=== PATIENT | female | born 1965 | race Caucasian/White ===

== ENCOUNTER 2025-06-09 07:01 | Day surgery (SDC) | payer OTHER ==
[~2025-06-09 07:01] MED LIST: Midazolam 1 MG/ML 2 ML SDV ONE; Propofol 200 MG/20 ML SDV ONE; fentaNYL 50 MCG/ML SDV ONE
[2025-06-09] MEDS: Lactated Ringers 1,000 ML IV SCH (07:50)
== END 2025-06-09 09:45 | disposition home or self-care (01) ==
LOC: JP.SDS 07:01
PROVIDERS: ATTEND Surgery
DX: Z12.11 Encounter for screening for malignant neoplasm of colon (principal); K57.30 Diverticulosis of large intestine without perforation or abscess without bleeding; I10 Essential (primary) hypertension
CPT/HCPCS: 45378; J2704; J3010; J7120; 00812-QZ; J2250